=== PATIENT | male | born 1990 | race Caucasian/White ===

== ENCOUNTER 2019-10-06 19:02 | Emergency (ER) | payer MEDICAID, OTHER ==
[~2019-10-06] VITALS: Ht 172.7 cm; Wt 81.0 kg
[2019-10-06] MEDS ORDERED: FLUORESCEIN SODIUM 1MG/STRIP BOTHEYE ONE (20:15)
[2019-10-06] MEDS ORDERED: TETRACAINE 0.5% OPHTH DROPS 4ML BOTHEYE ONE (20:15)
[2019-10-06] MEDS ORDERED: ACETAMINOPHEN 325MG TABLET PO ONE (21:15)
[2019-10-06 21:34] VITALS: BP 140/96
== END 2019-10-06 21:36 | disposition home or self-care (01) ==
LOC: ER 19:02
DX: H10.13 Acute atopic conjunctivitis, bilateral (principal); F12.10 Cannabis abuse, uncomplicated
CPT/HCPCS: 99283; 99284

== ENCOUNTER 2021-09-24 10:01 | Emergency (ER) | payer MEDICAID ==
[~2021-09-24] VITALS: Ht 172.7 cm; Wt 98.9 kg
[2021-09-24 10:19] VITALS: BP 129/81
[2021-09-24] MEDS ORDERED: BENZ1TAB7 GT (10:23)
[2021-09-24] MEDS ORDERED: RISP0.2514 PO (10:23)
[2021-09-24] MEDS ORDERED: ONDANSETRON 4MG ODT PO STA (10:26)
[2021-09-24] MEDS ORDERED: KETOROLAC 30MG/ML VIAL IV STA (10:26)
[2021-09-24] MEDS ORDERED: SODIUM CHLORIDE 0.9% 1,000 ML IV ONE (10:30)
[2021-09-24] MEDS ORDERED: MORPHINE SULFATE 4 MG/ML CPJ (NOT FOR IM USE) IV ONE (11:00)
[2021-09-24] MEDS ORDERED: NOREPINEPHRINE 8MG/250ML PMX 250 ML IV NR (11:30)
== END 2021-09-24 13:09 | disposition left against medical advice (07) ==
LOC: ER 10:13
DX: R10.13 Epigastric pain (principal); F12.10 Cannabis abuse, uncomplicated; F15.10 Other stimulant abuse, uncomplicated; Z98.890 Other specified postprocedural states; Z86.59 Personal history of other mental and behavioral disorders
CPT/HCPCS: 99281; J7030; 80305; 81003